=== PATIENT | male | born 1970 | race Caucasian/White ===

== ENCOUNTER 2017-12-18 00:06 | Emergency (ER) | payer MEDICAID, OTHER ==
[~2017-12-18] VITALS: Ht 175.3 cm; Wt 83.4 kg
[2017-12-18 00:09] VITALS: BP 146/99
[2017-12-18] MEDS ORDERED: KETOROLAC 30 MG/1 ML IM ONE (01:00)
[2017-12-18] MEDS ORDERED: KETOROLAC 30 MG/1 ML ONE (01:16)
== END 2017-12-18 02:23 | disposition home or self-care (01) ==
LOC: ED 01:28
DX: S76.011A Strain of muscle, fascia and tendon of right hip, initial encounter (principal); X58.XXXA Exposure to other specified factors, initial encounter; Y93.89 Activity, other specified; Y99.8 Other external cause status; Y92.009 Unspecified place in unspecified non-institutional (private) residence as the place of occurrence of the external cause
CPT/HCPCS: 73502; 96372; 99284; J1885